=== PATIENT | male | born 1970 | race African-American/Black ===

== ENCOUNTER 2018-10-05 20:15 | Emergency (ER) | payer MEDICAID, OTHER ==
[~2018-10-05] VITALS: Ht 182.9 cm; Wt 77.8 kg
[2018-10-05 20:30] VITALS: BP 150/106
--- NOTE | 2018-10-05 20:33 | NUR ---
TO LOBBY A/W BED AMBULATORY
--- NOTE | 2018-10-05 21:01 | NUR ---
AMBULATED TO ER BED 6
--- NOTE | 2018-10-05 21:10 | NUR ---
PT TO ED WITH C/O BODY ACHES AND POOR APPETITE X 2 DAYS. PT DENIES N/V/D. NO FEVERS. PT PLACED INTO BED, PENDING MD FABIAN.
--- NOTE | 2018-10-05 21:12 | NUR ---
Dr. Mcwilliams at bedside.
[2018-10-05] MEDS ORDERED: KETOROLAC 30 MG/ML VIAL IVP ONE (21:20)
[2018-10-05] MEDS ORDERED: NACL 0.9% 1,000 ML IV ONE ×2 (21:20→23:00)
[2018-10-05] MEDS ORDERED: ONDANSETRON 4 MG/2 ML VIAL IVP ONE (21:20)
[2018-10-05 21:46] LABS: BASOPHILS # (AUTO) 0.1 K/uL (0.00-0.22); BASOPHILS % (AUTO) 0.3 % (0.0-2.0); EOSINOPHILS % (AUTO) 0.3 % (0.0-4.0); HEMATOCRIT 46.1 % (36-52); HEMOGLOBIN 15.7 g/dL (12.0-18.0); LYMPHOCYTES # (AUTO) 1.4 K/uL (2.0-11.5); LYMPHOCYTES % (AUTO) 8.3 % (20.5-51.1); MEAN CORPUSCULAR HEMOGLOBIN 29 pg (27-31); MEAN CORPUSCULAR HGB CONC 34 g/dL (33-37); MEAN CORPUSCULAR VOLUME 85.7 fL (80-94); MONOCYTES # (AUTO) 1.6 K/uL (0.8-1.0); MONOCYTES % (AUTO) 9.4 % (1.7-9.3); NEUTROPHILS # (AUTO) 13.6 K/uL (1.8-7.7); NEUTROPHILS % (AUTO) 81.7 % (42.2-75.2); PLATELET COUNT (AUTO) 173 K/uL (140-450); RED BLOOD CELL COUNT(AUTO) 5.37 MIL/uL (4.20-6.10); RED CELL DISTRIBUTION WIDTH 14.2 % (11.6-13.7); WHITE BLOOD COUNT (AUTO) 16.6 K/uL (4.8-10.8)
[2018-10-05 22:19] LABS: ALBUMIN 3.7 g/dL (3.4-5.0); ANION GAP 19.1 (8-16); CARBON DIOXIDE 22.7 mmol/L (21-32); CREATININE 1.5 mg/dL (0.7-1.3); POTASSIUM 3.8 mmol/L (3.5-5.1); TOTAL BILIRUBIN 0.4 mg/dL (0.0-1.0)
--- NOTE | 2018-10-05 22:45 | NUR ---
PT REPORTS RELIEF OF SYMPTOMS AFTER TORADOL AND ZOFRAN ADMIN.
[2018-10-06 00:11] LABS: APPEARANCE,URINE CLEAR (CLEAR); BILIRUBIN,URINE 2+ (NEGATIVE); BLOOD, URINE 3+ (NEGATIVE); COLOR,URINE YELLOW (YELLOW); LEUKOCYTE ESTERASE ,URINE TRACE (NEGATIVE); NITRITE, URINE NEGATIVE (NEGATIVE); UGLUCOSE NEGATIVE (NEGATIVE)
[2018-10-06 00:23] LABS: RBC,URINE 20-50 /HPF (0-5)
[2018-10-06 00:25] LABS: WBC,URINE 0-5 /HPF (0-5)
[2018-10-06 00:30] VITALS: BP 144/91
--- NOTE | 2018-10-06 00:30 | NUR ---
Patient discharged with v/s stable. Written and verbal after care instructions given and explained. Patient alert, oriented and verbalized understanding of instructions. Ambulatory with steady gait. All questions addressed prior to discharge. ID band removed. Patient advised to follow up with PMD. Rx of IBUPROFEN, NORCO, AND KEFLEX WAS given. Patient educated on indication of medication including possible reaction and side effects. Opportunity to ask questions provided and answered. PT STATED HIS PAION LEVEL DECREASED PRIOR TO D/C, PAIN LEVEL IS 3/10. PT REQUESTED A WORK NOTE, ER MD PROVIDED ONE FOR PT.
== END 2018-10-06 00:30 | disposition home or self-care (01) ==
LOC: MED 20:15
DX: B34.9 Viral infection, unspecified (principal); J45.909 Unspecified asthma, uncomplicated; I10 Essential (primary) hypertension
CPT/HCPCS: 36415; 71045; 80053; 81001; 85025; 87081; 87086; 96374; 96375; 99284; J1885; J2405; Q0092; J7030

== ENCOUNTER 2022-03-12 18:24 | Emergency (ER) | payer MEDICAID, OTHER ==
[~2022-03-12] VITALS: Ht 182.9 cm; Wt 76.7 kg
[2022-03-12 18:58] VITALS: BP 147/91
--- NOTE | 2022-03-12 20:45 | NUR ---
PT TAKEN TO BED 3
--- NOTE | 2022-03-12 21:14 | NUR ---
Patient being evaluated by physician Peter at bedside.
[2022-03-12] MEDS ORDERED: HYDROcodone/APAP 10/325 MG 1 TAB TAB PO STA (21:18)
[2022-03-12] MEDS ORDERED: LIDOCAINE MPF 1% 10 MG/ML VIAL INJ ONE (21:20)
[2022-03-12] MEDS ORDERED: NAPR-1704 PO (21:20)
[2022-03-12] MEDS ORDERED: BACITRACIN OINT 500 UNITS/GM PKT TP ONE (21:39)
--- NOTE | 2022-03-12 21:53 | NUR ---
ADMINISTERED LIDOCAINE.
--- NOTE | 2022-03-12 22:02 | NUR ---
X-Ray at bedside.
== END 2022-03-12 20:45 | disposition home or self-care (01) ==
LOC: MED 18:24
DX: S62.337A Displaced fracture of neck of fifth metacarpal bone, left hand, initial encounter for closed fracture (principal); I10 Essential (primary) hypertension; J45.909 Unspecified asthma, uncomplicated; Z79.899 Other long term (current) drug therapy; W22.8XXA Striking against or struck by other objects, initial encounter; Y93.89 Activity, other specified; Y92.89 Other specified places as the place of occurrence of the external cause; Y99.0 Civilian activity done for income or pay
CPT/HCPCS: 26605; 73110; 73130; 99284; J2001; Q0092

== ENCOUNTER 2023-05-13 07:56 | Emergency (ER) | payer OTHER ==
[~2023-05-13] VITALS: Ht 182.9 cm; Wt 83.9 kg
[~2023-05-13 07:56] MED LIST: NAPR-1704 PO
[2023-05-13 07:59] VITALS: BP 149/97; PULSE 82; RESP 20; TEMP 97.9; O2SAT 97
[2023-05-13 08:59] LABS: BASOPHILS # (AUTO) 0.1 K/uL (0.00-0.22); BASOPHILS % (AUTO) 1.1 % (0.0-2.0); EOSINOPHILS # (AUTO) 0.3 K/uL (0-0.4); EOSINOPHILS % (AUTO) 3.8 % (0.0-4.0); HEMOGLOBIN 11.4 g/dL (12.0-18.0); LYMPHOCYTES # (AUTO) 1.7 K/uL (2.0-11.5); LYMPHOCYTES % (AUTO) 26.1 % (20.5-51.1); MEAN CORPUSCULAR HEMOGLOBIN 26 pg (27-31); MEAN CORPUSCULAR HGB CONC 34 g/dL (33-37); MEAN CORPUSCULAR VOLUME 78.7 fL (80-94); MONOCYTES # (AUTO) 0.4 K/uL (0.8-1.0); MONOCYTES % (AUTO) 6.3 % (1.7-9.3); NEUTROPHILS # (AUTO) 4.1 K/uL (1.8-7.7); NEUTROPHILS % (AUTO) 62.7 % (42.2-75.2); PLATELET COUNT (AUTO) 316 K/uL (140-450); RED BLOOD CELL COUNT(AUTO) 4.31 MIL/uL (4.20-6.10); RED CELL DISTRIBUTION WIDTH 16.1 % (11.6-13.7); WHITE BLOOD COUNT (AUTO) 6.6 K/uL (4.8-10.8)
[2023-05-13 09:28] LABS: ANION GAP 15.6 (8-16); CALCIUM 9.2 mg/dL (8.5-10.1); CARBON DIOXIDE 26.8 mmol/L (21-32); CREATININE 1.1 mg/dL (0.6-1.3); POTASSIUM 4.4 mmol/L (3.5-5.1)
[2023-05-13 09:36] LABS: LIPASE 35 U/L (16-77)
[2023-05-13 10:16] VITALS: BP 149/97; PULSE 82; RESP 20; TEMP 97.9; O2SAT 97
[2023-05-13 12:56] LABS: AMPHETAMINE, URINE NEGATIVE ng/ml (NEG <=1000); BARBITURATE, URINE NEGATIVE ng/ml (NEG <=200); BENZODIAZEPINE, URINE NEGATIVE ng/mL (NEG <=200); CANNABINOID, URINE POSITIVE ng/mL (NEG <=50); COCAINE, URINE NEGATIVE ng/mL (NEG <=300); OPIATE, URINE NEGATIVE ng/mL (NEG <=2000); PHENCYCLIDINE SCREEN,URINE NEGATIVE ng/mL (NEG <=25)
== END 2023-05-13 10:16 | disposition home or self-care (01) ==
LOC: MED 07:56
DX: R55 Syncope and collapse (principal); D64.9 Anemia, unspecified; I10 Essential (primary) hypertension; J45.909 Unspecified asthma, uncomplicated; F12.90 Cannabis use, unspecified, uncomplicated; Z79.1 Long term (current) use of non-steroidal anti-inflammatories (NSAID)
CPT/HCPCS: 36415; 70450; 71045; 80048; 80305; 83690; 84484; 85025; 85379; 93005; 99285